=== PATIENT | male | born 1990 ===

== ENCOUNTER → 2024-08-31 12:04 | Outpatient (CLI) | payer SELFPAY | PROVIDERS: Visit Provider Physician Assistant Medical | DX: L03.90 Cellulitis, unspecified (principal); S60.469A Insect bite (nonvenomous) of unspecified finger, initial encounter; W57.XXXA Bitten or stung by nonvenomous insect and other nonvenomous arthropods, initial encounter | CPT/HCPCS: 87070; 87075; 87077; 87147; 87186; 87205 ==